=== PATIENT | male | born 1980 | race Caucasian/White ===

== ENCOUNTER 2020-03-24 21:01 | Emergency (ER) | payer BC ==
[2020-03-24 22:54] LABS: Basophils % (A) 1 %; Eosinophils # (A) 0.1 k/uL (0-0.7); Eosinophils % (A) 2 %; HCT 41.6 % (39.0-53.0); HGB 13.5 gm/dL (13.0-17.5); Lymphocytes # (A) 0.7 k/uL (1.0-4.8); Lymphocytes % (A) 15 %; MCH 28.7 pg (25.0-35.0); MCHC 32.4 g/dL (31.0-37.0); MCV 88.5 fL (80.0-100.0); Mean Platelet Volume 7.5; Monocytes # (A) 0.3 k/uL (0-1.0); Monocytes % (A) 7 %; Neutrophils # (A) 3.4 k/uL (1.3-7.7); Neutrophils % (A) 73 %; Platelet Count 141 k/uL (150-450); RDW 13.3 % (11.5-15.5); WBC 4.7 k/uL (3.8-10.6)
[2020-03-24 22:55] LABS: Appearance,Urine Clear (Clear); Bilirubin,Urine Negative (Negative); Blood,Urine Negative (Negative); Color,Urine Light Yellow; Glucose,Urine (UA) Negative (Negative); Ketones,Urine Negative (Negative); Leukocyte Esterase,Urine Negative (Negative); Nitrite,Urine Negative (Negative); Protein,Urine Negative (Negative); Specific Gravity,Urine 1.004 (1.001-1.035); Urobilinogen,Urine <2.0 mg/dL (<2.0)
--- NOTE | 2020-03-24 23:07 | XR ---
EXAMINATION TYPE: XR knee complete bilateral DATE OF EXAM: 03/24/2020 COMPARISON: NONE HISTORY: Bilateral knee pain and swelling TECHNIQUE: 3 views each knee FINDINGS: There is bilateral knee joint effusions. This is larger on the left side compared to the ri ght. I see no fracture nor dislocation. There is mild spurring of the femoral and tibial condyles. Melly int spaces are fairly normal. IMPRESSION: Bilateral knee joint effusions. Mild degenerative hypertrophic spurring. No fracture seen .
[2020-03-24 23:24] LABS: ALT 33 U/L (4-49); AST 30 U/L (17-59); African American GFR (CKD) >90 (>60 ml/min/1.73 sqM); Albumin 4.1 g/dL (3.5-5.0); Alkaline Phosphatase 59 U/L (38-126); Anion Gap 8 mmol/L; Blood Urea Nitrogen 8 mg/dL (9-20); Calcium 8.8 mg/dL (8.4-10.2); Carbon Dioxide 26 mmol/L (22-30); Chloride 101 mmol/L (98-107); Glucose 124 mg/dL (74-99); Non-African American GFR(CKD) >90 (>60 ml/min/1.73 sqM); Potassium 3.9 mmol/L (3.5-5.1); Sodium 135 mmol/L (137-145); Total Bilirubin 0.4 mg/dL (0.2-1.3); Total Protein 6.3 g/dL (6.3-8.2)
[2020-03-24 23:43] LABS: Erythrocyte Sedimentation Rate 20 mm/hr (0-15)
[2020-03-24] MEDS ORDERED: KETOROLAC 60 MG/2 ML VIAL IM STA (23:48)
--- NOTE | 2020-03-24 23:48 | ED ---
Extremity Problem HPI - General Chief complaint: Extremity Problem,Nontraumatic Stated complaint: knee swelling Time Seen by Provider: 03/24/20 21:20 Source: patient Mode of arrival: wheelchair Limitations: no limitations - History of Present Illness Initial comments: 39-year-old male presenting today for chief complaint of bilateral knee pain. Patient states that on Sunday he had night sweats he felt like he had general malaise and fatigue. He states that the symptoms subsided and he has felt great for the past 2 days however he noted swelling of the left knee yesterday and today both knees. He denies any redness he states he still able to range the knee with mild discomfort. He stated to have the weight-bear and ambulate. Denies any numbness tingling or loss of sensation. Patient has a history rheumatoid arthritis or autoimmune disease. Patient denies any calf pain or swelling. Denies a history of DVT. Patient denies any numbness tingling or loss of sensation. Denies any recent bites by techs he denies any conjunctival injection dysuria or urgency frequency or concern for sexually transmitted diseases. Patient denies any other symptoms and states that the constitutional symptoms have subsided. Remaining review systems negative upon arrival patient appears well in the sense acute distress afebrile - Related Data Previous Rx's Medication Instructions Recorded Ibuprofen 600 mg PO Q8H PRN 5 Days #15 tab 03/24/20 Allergies Allergy/AdvReac Type Severity Reaction Status Date / Time No Known Allergies Allergy Verified 03/24/20 21:17 Review of Systems ROS Statement: Those systems with pertinent positive or pertinent negative responses have been documented in the HPI. ROS Other: All systems not noted in ROS Statement are negative. Past Medical History Past Medical History: No Reported History History of Any Multi-Drug Resistant Organisms: None Reported Past Surgical History: Orthopedic Surgery Additional Past Surgical History / Comment(s): bilateral knee tendon release. Past Psychological History: No Psychological Hx Reported Smoking Status: Never smoker Past Alcohol Use History: Occasional Past Drug Use History: None Reported General Exam - General Exam Comments Initial Comments: General: The patient is awake and alert, in no distress, and does not appear acutely ill. Eye: Pupils are equal, round and reactive to light, extra-ocular movements are intact. No nystagmus. There is normal conjunctiva bilaterally. No signs of icterus. Musculoskeletal: Normal ROM, with mild tenderness of the knee b/l. KNees appear equal slightly swollen. No redness, pain out of proportion with passive flexion Strength 5/5. Sensation intact. Dp pulses equal bilaterally 2+. Neurological: A&O x 3. CN II-XII intact, There are no obvious motor or sensory deficits. Coordination appears grossly intact. Speech is normal. Skin: Skin is warm and dry and no rashes or lesions are noted. Psychiatric: Cooperative, appropriate mood & affect, normal judgment. Limitations: no limitations Course Vital Signs 03/24/20 21:12 Temperature 98.3 F Pulse Rate 78 Respiratory 16 Rate Blood Pressure 135/76 O2 Sat by Pulse 100 Oximetry Medical Decision Making - Medical Decision Making 39yo male presenting today for cc of b/l knee swelling. Swelling without redness noted on exam. no other exam findings on skin exam. No conjuctival infection. Denies STI concern, dysuria. Patient labs reveal CRP elevation. No leukocytosis or fevers. Patient is able to range I do not feel this is a septic joint as b/l would be unlikely. Feel most likely an inflammatory process. RF factor pending Lyme testing pending. Recommend rheumatoid and PCP f/u. Otherwise at this time patient appears stable is ambulatory and neurovascularly intact effaced history of discharge. Dr. Raza agreeable to care plan and discharge. - Lab Data Result diagrams: 03/24/20 22:31 03/24/20 22:31 Lab Results 03/24/20 03/24/20 03/24/20 Range/Units 22:31 22:31 22:31 WBC 4.7 (3.8-10.6) k/uL RBC 4.70 (4.30-5.90) m/uL Hgb 13.5 (13.0-17.5) gm/dL Hct 41.6 (39.0-53.0) % MCV 88.5 (80.0-100.0) fL MCH 28.7 (25.0-35.0) pg MCHC 32.4 (31.0-37.0) g/dL RDW 13.3 (11.5-15.5) % Plt Count 141 L (150-450) k/uL Neutrophils % 73 % Lymphocytes % 15 % Monocytes % 7 % Eosinophils % 2 % Basophils % 1 % Neutrophils # 3.4 (1.3-7.7) k/uL Lymphocytes # 0.7 L (1.0-4.8) k/uL Monocytes # 0.3 (0-1.0) k/uL Eosinophils # 0.1 (0-0.7) k/uL Basophils # 0.0 (0-0.2) k/uL ESR 20 H (0-15) mm/hr Sodium 135 L (137-145) mmol/L Potassium 3.9 (3.5-5.1) mmol/L Chloride 101 (98-107) mmol/L Carbon Dioxide 26 (22-30) mmol/L Anion Gap 8 mmol/L BUN 8 L (9-20) mg/dL Creatinine 0.67 (0.66-1.25) mg/dL Est GFR (CKD-EPI)AfAm >90 (>60 ml/min/1.73 sqM) Est GFR (CKD-EPI)NonAf >90 (>60 ml/min/1.73 sqM) Glucose 124 H (74-99) mg/dL Calcium 8.8 (8.4-10.2) mg/dL Total Bilirubin 0.4 (0.2-1.3) mg/dL AST 30 (17-59) U/L ALT 33 (4-49) U/L Alkaline Phosphatase 59 (38-126) U/L C-Reactive Protein 76.0 H (<10.0) mg/L Total Protein 6.3 (6.3-8.2) g/dL Albumin 4.1 (3.5-5.0) g/dL Urine Color Light Yellow Urine Appearance Clear (Clear) Urine pH 7.0 (5.0-8.0) Ur Specific [place] 1.004 (1.001-1.035) Urine Protein Negative (Negative) Urine Glucose (UA) Negative (Negative) Urine Ketones Negative (Negative) Urine Blood Negative (Negative) Urine Nitrite Negative (Negative) Urine Bilirubin Negative (Negative) Urine Urobilinogen <2.0 (<2.0) mg/dL Ur Leukocyte Esterase Negative (Negative) Disposition Clinical Impression: Bilateral knee swelling, Knee pain, Elevated C-reactive protein (CRP) Disposition: HOME SELF-CARE Condition: Good Instructions (If sedation given, give patient instructions): Swollen Joint (ED) Additional Instructions: Please use medication as discussed. Please follow-up with family doctor in the next 2 days. Please return to emergency room if the symptoms increase or worsen or for any other concerns. Prescriptions: Ibuprofen 600 mg PO Q8H PRN 5 Days #15 tab PRN Reason: Pain Is patient prescribed a controlled substance at d/c from ED?: No Referrals: Nonstaff,Physician [Primary Care Provider] - 1-2 days Time of Disposition: 23:48
[2020-03-25 11:50] LABS: Rheumatoid Factor, Qnt 12 IU/mL (0-15)
[2020-03-26 09:43] VITALS: BP 135/76; PULSE 78; RESP 16; TEMP 98.3
== END 2020-03-25 00:20 | disposition home or self-care (01) ==
LOC: EC 21:01
DX: M25.462 Effusion, left knee (principal); M25.461 Effusion, right knee; R79.82 Elevated C-reactive protein (CRP)
CPT/HCPCS: 36415; 80053; 81003; 85025; 85652; 86140; 86431; 86618; 96372; 99283